=== PATIENT | female | born 1975 | race African-American/Black ===

== ENCOUNTER → 2017-07-09 | Outpatient (CLI) | payer OTHER ==
--- NOTE | 2017-07-09 19:05 | RADIOLOGY REPORT (SQ) ---
EXAM DESCRIPTION: FOOT RIGHT COMPLETE COMPLETED DATE/TIME: 07/09/2017 6:23 pm REASON FOR STUDY: RIGHT FOOT PAIN COMPARISON: None. NUMBER OF VIEWS: Three views. TECHNIQUE: AP, lateral and oblique radiographic images acquired of the right foot. LIMITATIONS: None. FINDINGS: MINERALIZATION: Normal. BONES: Hallux valgus with mild bony overgrowth of the head of the 1st metatarsal. There is lucency i n the distal 1st metatarsal. JOINTS: No effusions. SOFT TISSUES: No soft tissue swelling. No foreign body. OTHER: No other significant finding. IMPRESSION: 1. Bunion. 2. There is lucency in the distal 1st metatarsal with no significant sclerotic rim. The differentia l list is long and includes osteomyelitis and multiple myeloma among other osseous lesions. TECHNICAL DOCUMENTATION: JOB ID: [id number] [employer]- All Rights Reserved Reading location - IP/workstation name: [email or web address]
== END ==
LOC: RAD 18:01
PROVIDERS: ATTEND Nurse Practitioner Family
DX: M79.671 Pain in right foot (principal)

== ENCOUNTER 2017-07-14 08:28 | Day surgery (SDC) | payer BC, OTHER ==
[~2017-07-14 08:28] MED LIST: CEFAZOLIN 1 GM/D5W RTU 1 GM/50 ML RTUPB IV PRN
[2017-07-14] MEDS ORDERED: NORMAL SALINE INJ/PF 0.9% 10 ML SDV ONE (10:00)
[2017-07-14] MEDS ORDERED: LIDOCAINE 2% INJ (20 MG/ML) 20 ML MDV ONE (10:01)
[2017-07-14] MEDS ORDERED: BUPIVACAINE HCL 0.5 % INJ/PF 30 ML SDV ONE (10:02)
[2017-07-14] MEDS ORDERED: LIDOCAINE 2% INJ-PF (20 MG/ML) 10 ML AMPUL ONE (10:13)
[2017-07-14] MEDS ORDERED: FENTANYL CITRATE INJ/PF 100 MCG/2 ML AMPUL ONE (10:13)
[2017-07-14] MEDS ORDERED: MIDAZOLAM 2 MG/2 ML INJ ONE (10:13)
[2017-07-14] MEDS ORDERED: ACETAMINOPHEN 100 ML IV ONE (10:14)
[2017-07-14] MEDS ORDERED: PROPOFOL INJ 200 MG/20 ML VIAL IV ONE (10:14)
[2017-07-14] MEDS: POLYMYXIN B SULFATE INJ 500000 UNIT VIAL ONE ×2 (11:20)
[2017-07-14] MEDS: BACITRACIN INJ 50,000 UNIT VIAL ONE ×2 (11:20)
[2017-07-14] MEDS: BUPIVACAINE INJ/PF LIPOSOME/PF 266 MG/20 ML SDV ONE ×2 (11:52)
--- NOTE | 2017-07-14 15:16 | RADIOLOGY REPORT (SQ) ---
EXAM DESCRIPTION: NO CHG FLUORO; FOOT RIGHT 2 VIEWS COMPLETED DATE/TIME: 07/14/2017 2:59 pm REASON FOR STUDY: RT FOOT DASH BUNIONECTOMY OSTEOTOMY M20.11 HALLUX VALGUS (ACQUIRED), RIGHT FOOT COMPARISON: None. FLUOROSCOPY TIME: 7 seconds 4 images saved to PACS. TECHNIQUE: Intra-operative images acquired during surgical procedure to evaluate progress. NUMBER OF IMAGES: 4 LIMITATIONS: None. FINDINGS: Selected images from osteotomy and orthopedic screw placement base of proximal 1st phalanx . IMPRESSION: IMAGE(S) OBTAINED DURING PROCEDURE. COMMENT: Quality ID 145: Final reports for procedures using fluoroscopy that document radiation exp osure indices, or exposure time and number of fluorographic images (if radiation exposure indices are not available) Please consult full operative report of the attending physician for description of the procedure. TECHNICAL DOCUMENTATION: JOB ID: [id number] [employer]- All Rights Reserved Reading location - IP/workstation name: [email or web address]
--- NOTE | 2017-07-14 15:16 | RADIOLOGY REPORT (SQ) ---
EXAM DESCRIPTION: NO CHG FLUORO; FOOT RIGHT 2 VIEWS COMPLETED DATE/TIME: 07/14/2017 2:59 pm REASON FOR STUDY: RT FOOT DASH BUNIONECTOMY OSTEOTOMY M20.11 HALLUX VALGUS (ACQUIRED), RIGHT FOOT COMPARISON: None. FLUOROSCOPY TIME: 7 seconds 4 images saved to PACS. TECHNIQUE: Intra-operative images acquired during surgical procedure to evaluate progress. NUMBER OF IMAGES: 4 LIMITATIONS: None. FINDINGS: Selected images from osteotomy and orthopedic screw placement base of proximal 1st phalanx . IMPRESSION: IMAGE(S) OBTAINED DURING PROCEDURE. COMMENT: Quality ID [id number]: Final reports for procedures using fluoroscopy that document radiation exp osure indices, or exposure time and number of fluorographic images (if radiation exposure indices are not available) Please consult full operative report of the attending physician for description of the procedure. TECHNICAL DOCUMENTATION: JOB ID: [id number] [employer]- All Rights Reserved Reading location - IP/workstation name: [email or web address]
--- NOTE | 2017-07-16 00:14 | SURGICARE DISCHARGE SUMMARY E ---
[facility] Discharge Summary NAME: DELL CARCAMO AGE: 42Y ADMITTED: 07/14/2017 DISCHARGED: 07/14/2017 PREOPERATIVE DIAGNOSES: Hallux valgus, right foot. SURGICAL PROCEDURE: Hallux valgus correction, Andrew osteotomy with internal screw fixation, right foot. POSTOPERATIVE DIAGNOSES: Hallux valgus, right foot. SURGEON: Bridget Osborn DPM BUDGET SPECIALIST: Jemal Heath DPM HOSPITAL COURSE: The patient was admitted to [facility] with chief complaint of a painful bunion on her right foot. She had undergone conservative therapy but the pain had worsened over the past year, especially whenever she had to wear shoes. The patient decided to have this problem surgically corrected. She underwent the above surgical procedures without any complication and was transferred to the recovery room. She was discharged with an ice pack, a surgical shoe, postoperative instructions including no weight bearing on the surgical foot, and postoperative prescriptions for Percocet 5/325 mg, #60; Phenergan 25 mg, #30; and cephalexin 500 mg, #4. She was given a followup appointment in doctor's office in 1 week, and the patient was discharged from [facility]. DICTATING PHYSICIAN: BRIDGET OSBORN D.P.M. [id number] PHY#: [id number] ID: [id number] JOB#: [id number] ACCT: [id number] cc:BRIDGET OSBORN DPM >
--- NOTE | 2017-07-16 01:34 | SURGICARE OPERATIVE REPORT E ---
[facility] NAME: DELL CARCAMO AGE: 42Y DATE OF SURGERY: 07/14/2017 PREOPERATIVE DIAGNOSIS: HALLUX VALGUS, RIGHT FOOT. POSTOPERATIVE DIAGNOSIS: HALLUX VALGUS, RIGHT FOOT. SURGICAL PROCEDURE: Hallux valgus correction by Andrew osteotomy with internal screw fixation, right foot. SURGEON: ALONDRA CARBAJAL DPM SOAKER HIDES: Jemal Heath DPM PROCEDURE: Following the induction of IV regional and local anesthesia, the right foot and leg were prepped and draped in the usual sterile manner. A pneumatic tourniquet was placed around the right ankle and then placed to 250 mmHg after exsanguination with the Esmarch bandage. The following surgical procedure was then performed: Hallux valgus correction via Andrew osteotomy with internal screw fixation, right foot. Attention was directed to the dorsal aspect of the first metatarsal-phalangeal joint of the right foot, where an approximately 6 cm dorsal linear incision was made. The incision was deepened via sharp dissection. All bleeders were clamped and Bovie'd as necessary for the purposes of hemostasis. A capsular incision was made in the same manner as the original skin incision. It was made medial to the extensor hallucis longus tendon. The capsule was reflected medially and laterally from the bone. This brought in the hypertrophied medial eminence of the first metatarsal head utilizing a [employer] sagittal saw. It was osteotomized parallel to long axis of the bone and removed in toto from the wound. Attention was directed to the first interspace, where via blunt dissection, the transverse adductor tendon was identified and sharply incised. Attention was then directed to the proximal phalanx of the hallux, where an Andrew osteotomy was made. The apex was proximal-lateral, the base was distal-medial. An approximately 2-mm edge of bone was removed utilizing a [employer] sagittal saw. The osteotomy was then feathered on down until it could close down on itself. The osteotomy was temporarily fixated with a 0.86 guidewire. An x-ray was taken to make sure that the wire was in correct position, and it was. The wire was directed from the medial condyle and was directed distal-lateral until it broke through the lateral cortex. The reamer measure was then threaded down the guidewire and the hole was reamed to accept the head of the screw, and it was noted that a 20-mm, 2.0 cancellous screw would be needed. The osteotomy was then over-drilled utilizing a 1.7 drill bit. A 20-mm cancellous screw was then threaded down the guidewire and was tightened down until the ostotomy was stably fixated. The guidewire was removed. Another x-ray was taken and noted that the screw was in good position and had broken through the lateral cortex. The area was then flushed with copious amounts of an antibacterial saline solution. Bone wax was then applied to the medial aspect of the first metatarsal head. It was noted that there were irregularities in the first metatarsal head from a cyst that had been seen on the patient's x-rays prior, but they were solid, and there was no need for them to be filled. The capsule was then coapted and maintained utilizing simple interrupted sutures of 3-0 Vicryl. The extensor hallucis longus tendon was then tacked medially utilizing simple interrupted sutures of 3-0 Vicryl. The subcutaneous tissue was coapted and maintained utilizing simple interrupted sutures of 4-0 Vicryl. Then 17 mL of Exparel was subcutaneously injected along the length of the incision. The skin was then coapted and maintained utilizing horizontal mattress sutures of 5-0 nylon. Dry sterile dressing was then applied consisting of Master silk, 4x4's, Conform, Kerlix, and Coban. The pneumatic tourniquet was released. It was noted that all digits were warm and viable. The patient was transferred to the recovery room. DICTATING PHYSICIAN: ALONDRA CARBAJAL D.P.M. [id number] PHY#: [id number] ID: [id number] JOB#: [id number] ACCT: [id number] cc:ALONDRA CARBAJAL DPM >
== END 2017-07-14 13:13 | disposition home or self-care (01) ==
LOC: SC 08:28
PROVIDERS: ATTEND Podiatrist Foot Surgery
DX: M20.11 Hallux valgus (acquired), right foot (principal); F17.210 Nicotine dependence, cigarettes, uncomplicated
CPT/HCPCS: 28298; 73620; C1769; C1713; J2250; J3490 ×6; J0690; J3010; J2704; J0131; C9290; 01480